=== PATIENT | male | born 1955 | race Caucasian/White ===

== ENCOUNTER 2021-03-23 07:01 | Day surgery (SDC) | payer BC ==
[~2021-03-23 07:01] MED LIST: ALBU90OI INH; CARI350 PO; DOXY100 PO; HYDACE5 PO; HYDMOR2 PO; IBUP800; IBUP800 PO; LORA2 PO; MECL25 PO; META800 PO; NAPR500 PO; NEURONTIN; NORCO; NORFLEX; ONDA8ODT MM; OXYACE5T PO; RXCODACET PO; RXHYDMOR2 PO; RXLORA1 PO; RXONDA4ODT MM
--- NOTE | 2021-03-23 08:09 | NUR ---
NO MEDICATIONS GIVEN IN RADIOLOGY PATIENTS PULSE ANYWHERE FROM 48-72 CASE STOPPED AND PATIENT TAKEN BACK TO [facility] AND DISCHARGED.
== END 2021-03-23 22:46 | disposition home or self-care (01) ==
LOC: ORD 07:01 → ORSCMMR 07:01 → CT 07:01 → ORSCMMR 07:30 → ORD 07:30 → CT 08:00 → ORSCMMR 22:46
DX: I48.91 Unspecified atrial fibrillation (principal); I25.10 Atherosclerotic heart disease of native coronary artery without angina pectoris; I42.9 Cardiomyopathy, unspecified; J44.9 Chronic obstructive pulmonary disease, unspecified; F17.200 Nicotine dependence, unspecified, uncomplicated; Z88.0 Allergy status to penicillin; Z79.899 Other long term (current) drug therapy
CPT/HCPCS: 75571

== ENCOUNTER 2021-06-15 06:24 | Day surgery (SDC) | payer BC ==
[~2021-06-15] VITALS: Ht 182.9 cm; Wt 92.5 kg
[~2021-06-15 06:24] MED LIST changes: +PACERONE100 M1 PO; +XARELTO20 MG PO; +ZOLP5 PO
[2021-06-15 10:43] LABS: BASOPHILS ABSOLUTE AUTO 0.04 K/mm3 (0.00-0.23); BASOPHILS PERCENT AUTO 1 % (0-2); EOSINOPHILS ABSOLUTE AUTO 0.29 K/mm3 (0.00-0.68); EOSINOPHILS PERCENT AUTO 4 % (0-6); Hematocrit 45.8 % (37.0-53.0); Hemoglobin 14.8 g/dL (13.5-17.5); IMMATURE GRAN ABSOLUTE AUTO 0.02 K/mm3 (0.00-0.10); IMMATURE GRAN PERCENT AUTO 0 % (0-1); LYMPHOCYTES ABSOLUTE AUTO 1.96 K/mm3 (0.84-5.20); LYMPHOCYTES PERCENT AUTO 27 % (21-46); MONOCYTES ABSOLUTE AUTO 0.57 K/mm3 (0.16-1.47); MONOCYTES PERCENT AUTO 8 % (4-13); Mean Corpuscular HGB 30.7 pg (26.0-34.0); Mean Corpuscular HGB Conc 32.3 g/dL (31.5-36.5); Mean Corpuscular Volume 95 fL (80-100); Mean Platelet Volume 10.6 fL (9.1-12.4); NEUTROPHILS ABSOLUTE AUTO 4.29 K/mm3 (1.96-9.15); NEUTROPHILS PERCENT AUTO 60 % (41-73); Platelet Count 197 K/mm3 (150-400); RDW Coefficient Variation 13.3 % (11.7-14.2); RDW Standard Deviation 46.5 fL (35.1-46.3); Red Blood Cell Count 4.82 M/mm3 (4.30-5.90); White Blood Cell Count 7.17 K/mm3 (4.00-11.30)
[2021-06-15 11:04] LABS: International Normalized Ratio 1.1; Prothrombin Time Results 11.5 Sec (9.7-11.5)
[2021-06-15 11:06] LABS: Anion Gap 5 mmol/L (6-16); Blood Urea Nitrogen 18 mg/dL (8-24); CO2, Blood 28 mmol/L (21-32); CPK Creatine Kinase 83 U/L (39-308); Calcium, Blood 8.5 mg/dL (8.5-10.1); Chloride, Blood 106 mmol/L (98-108); Creatinine, Blood 0.95 mg/dL (0.60-1.20); Glomerular Filtration Rate >60 (60-); Glucose, Blood 102 mg/dL (70-99); Potassium, Blood 3.9 mmol/L (3.5-5.5); Sodium, Blood 139 mmol/L (136-145); Troponin I <0.015 ng/mL (0.000-0.040)
[2021-06-15 19:31] LABS: Troponin I 1.27 ng/mL (0.000-0.040)
[2021-06-16 03:19] LABS: CHOL/HDL RATIO 2.4; Cholesterol 182 mg/dL (50-200); Creatinine, Blood 0.91 mg/dL (0.60-1.20); HDL Cholesterol 76 mg/dL (>39); LDL/HDL RATIO 1.2; Low Density Lipoprotein Chol 92 mg/dL (0-110); Triglycerides 70 mg/dL (30-160); Very Low Density Lipoprot Chol 14 mg/dL (6-32)
[2021-06-16 03:48] LABS: Troponin I 3.5 ng/mL (0.000-0.040)
--- NOTE | 2021-06-16 06:17 | NUR ---
SHIFT SUMMARY ASSUMED CARE OF PT AT 1900. PT IS A/OX4. HEART SUNDS IRREGULAR, TELE SHOWS AFIB AVERAGING 70'S. PT RADIAL SITE HAS NO DRAINAGE OR PAIN. LUNG OSUNDS CLEAR. PT WAS INDEPENDENT TO BATHROOM. CALL LIGHT IN REACH, BED IN LOWEST POSITON.
[2021-06-16] MEDS ORDERED: ASPI81CH PO (08:10)
[2021-06-16] MEDS ORDERED: ATOR40TA PO (08:10)
[2021-06-16] MEDS ORDERED: LISI5 PO (08:21)
[2021-06-16] MEDS ORDERED: METO25 PO (08:22)
[2021-06-16] MEDS ORDERED: TICA90TA PO (08:23)
--- NOTE | 2021-06-16 09:25 | NUR ---
DISCHARGE: PT AND FAMILY PROVIDED WITH DISCHARGE INSTRUCTIONS, PAPERWORK, STENT CARD. ALL QUESTIONS HAVE BEEN ANSWERED, PT V/U OF DC INSTRUCTIONS. IV DC'D WNL. PT ESCORTED VIA WHEELCHAIR FROM UNIT TO AWAITING RIDE WITH SPOUSE.
[2021-06-16 11:58] LABS: Anion Gap 2 mmol/L (6-16); Blood Urea Nitrogen 14 mg/dL (8-24); Bun/Creatinine Ratio 15.2 (12.0-20.0); CO2, Blood 28 mmol/L (21-32); Calcium, Blood 8.5 mg/dL (8.5-10.1); Chloride, Blood 110 mmol/L (98-108); Creatinine, Blood 0.92 mg/dL (0.60-1.20); Glomerular Filtration Rate >60 (60-); Glucose, Blood 108 mg/dL (70-99); Potassium, Blood 4.1 mmol/L (3.5-5.5); Sodium, Blood 140 mmol/L (136-145)
== END 2021-06-16 09:25 | disposition home or self-care (01) ==
LOC: MHTC 06:24 → PCU 10:04 → MHTC 06-16 09:25
PROVIDERS: Internal Medicine Cardiovascular Disease
DX: I25.10 Atherosclerotic heart disease of native coronary artery without angina pectoris (principal); I48.19 Other persistent atrial fibrillation; I10 Essential (primary) hypertension; J44.9 Chronic obstructive pulmonary disease, unspecified; F17.210 Nicotine dependence, cigarettes, uncomplicated; Z88.0 Allergy status to penicillin; Z91.09 Other allergy status, other than to drugs and biological substances; Z79.01 Long term (current) use of anticoagulants; Z95.5 Presence of coronary angioplasty implant and graft
CPT/HCPCS: 36415; 80048; 80061; 82550; 82565; 84484; 85025; 85347; 85610; 86141; 93005; 93010; 93458; 99152; 99153; A9270; C1725; C1769; C1874; C1887; C1894; C9600; J0360; J1644; J2250; J3010; J7030; J7050; Q9967

== ENCOUNTER 2021-12-04 10:40 | Day surgery (SDC) | payer BC ==
[~2021-12-04] VITALS: Ht 180.3 cm; Wt 94.0 kg
[~2021-12-04 10:40] MED LIST changes: +ASPI81CH PO; +ATOR40TA PO; +LISI5 PO; +METO25 PO; +TICA90TA PO
[2021-12-04] MEDS ORDERED: Voltaren100 GM TOP (11:19)
[2021-12-04] MEDS ORDERED: XARELTO20 MG PO (11:21)
[2021-12-04] MEDS ORDERED: ZOLP5 PO (11:21)
--- NOTE | 2021-12-04 12:30 | NUR ---
PT DOSING, BUT EASILY ROUSABLE; DENIES PAIN POST PROCEDURE. PT'S VSS, AND ON RA.
--- NOTE | 2021-12-04 12:35 | NUR ---
DR GRIMES IN TO DISCUSS PROCEDURE RESULTS WITH PT.
--- NOTE | 2021-12-04 13:10 | NUR ---
PT DRESSED SELF WITHOU PROBLEM, IV REMOVED-CANNULA INTACT.
--- NOTE | 2021-12-04 13:17 | NUR ---
PT RECEIVED DISCHARGE INSTRUCTIONS, MED LIST AND AFTER CARE INSTRUCTIONS; VERBALIZED GOOD UNDERSTANDING. PT LEFT FACILITY VIA W/C, CONDITION STABLE.
== END 2021-12-04 23:53 | disposition home or self-care (01) ==
LOC: MHTC 10:40
DX: I48.11 Longstanding persistent atrial fibrillation (principal); I25.10 Atherosclerotic heart disease of native coronary artery without angina pectoris; J44.9 Chronic obstructive pulmonary disease, unspecified; Z88.0 Allergy status to penicillin; Z87.891 Personal history of nicotine dependence
CPT/HCPCS: 92960; J2704; J7030

== ENCOUNTER 2022-04-01 13:39 | Emergency (ER) | payer BC ==
[~2022-04-01] VITALS: Ht 182.9 cm; Wt 94.3 kg
[~2022-04-01 13:39] MED LIST changes: +Voltaren100 GM TOP
== END 2022-04-01 15:30 | disposition home or self-care (01) ==
LOC: ER 13:39
DX: S00.83XA Contusion of other part of head, initial encounter (principal); S00.12XA Contusion of left eyelid and periocular area, initial encounter; S00.11XA Contusion of right eyelid and periocular area, initial encounter; W01.198A Fall on same level from slipping, tripping and stumbling with subsequent striking against other object, initial encounter; Z79.899 Other long term (current) drug therapy; Z79.01 Long term (current) use of anticoagulants
CPT/HCPCS: 70450; 70486

== ENCOUNTER 2024-07-30 12:47 | Emergency (ER) | payer BC ==
[~2024-07-30] VITALS: Ht 182.9 cm; Wt 95.2 kg
[2024-07-30 12:59] VITALS: BP 151/98
[2024-07-30] MEDS ORDERED: OCUFLOX5 M9 LEFTEAR (14:39)
== END 2024-07-30 14:51 | disposition home or self-care (01) ==
LOC: ER 12:47
DX: H61.23 Impacted cerumen, bilateral (principal); H60.502 Unspecified acute noninfective otitis externa, left ear; I10 Essential (primary) hypertension; Z79.899 Other long term (current) drug therapy; Z88.0 Allergy status to penicillin
CPT/HCPCS: 99283